=== PATIENT | female | born 2000 | race Caucasian/White ===

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

== ENCOUNTER 2018-05-05 15:55 | Emergency (ER) | payer BC ==
[2018-05-05 16:55] VITALS: BP 107/78
--- NOTE | 2018-05-05 17:11 | UC ---
Respiratory Complaint HPI - HPI Summary HPI Summary: 18 year old female presents with 3 day history of low grade fever (100.5), mild nasal congestion, post-nasal drip, and a non-productive cough. Denies headache, ear pain or pressure, sore throat, chest pain, or shortness of breath. - History of Current Complaint Chief Complaint: UCGeneralIllness Stated Complaint: COUGH Time Seen by Provider: 05/05/18 17:02 Hx Obtained From: Patient Hx Last Menstrual Period: 04/29/18 Onset/Duration: Gradual Onset, Lasting Days - 3 Pain Intensity: 0 Character: Cough: Nonproductive Aggravating Factors: Recumbent Position Alleviating Factors: Nothing Associated Signs And Symptoms: Positive: Fever, URI, Nasal Congestion, Hoarseness. Negative: Dyspnea, Wheezing, Hemoptysis, Sinus Discomfort - Allergies/Home Medications Allergies/Adverse Reactions: Allergies Allergy/AdvReac Type Severity Reaction Status Date / Time cephalexin [From Keflex] Allergy Intermediate Rash Verified 05/05/18 16:56 amoxicillin [From Augmentin] AdvReac GI Upset Verified 05/05/18 16:56 clavulanic acid AdvReac GI Upset Verified 05/05/18 16:56 [From Augmentin] PMH/Surg Hx/FS Hx/Imm Hx Previously Healthy: Yes - Denies significant PMH - Surgical History Surgical History: None Surgery Procedure, Year, and Place: tonsillectomy - Family History Family History: Noncontributory - Social History Occupation: Student Lives: Dormitory/Roommates Alcohol Use: Occasionally Substance Use Type: None Smoking Status (MU): Never Smoked Tobacco - Immunization History Most Recent Influenza Vaccination: none Review of Systems Constitutional: Fever Skin: Negative Eyes: Negative ENT: Nasal Discharge Respiratory: Cough Cardiovascular: Negative Gastrointestinal: Negative Is Patient Immunocompromised?: No All Other Systems Reviewed And Are Negative: Yes Physical Exam Triage Information Reviewed: Yes Appearance: Well-Appearing, No Pain Distress, Well-Nourished Vital Signs: Initial Vital Signs Temp 97.6 F 05/05/18 16:50 Pulse 100 05/05/18 16:50 Resp 18 05/05/18 16:50 BP 107/78 05/05/18 16:50 Pulse Ox 100 05/05/18 16:50 Eyes: Positive: Conjunctiva Clear. Negative: Discharge ENT: Positive: Nasal congestion, Nasal drainage, TMs normal, Uvula midline. Negative: Pharyngeal erythema, Tonsillar swelling, Tonsillar exudate, Sinus tenderness Neck: Positive: Supple, Nontender, No Lymphadenopathy Respiratory: Positive: Lungs clear, Normal breath sounds, No respiratory distress Cardiovascular: Positive: RRR, No Murmur Neurological: Positive: Alert Skin Exam: Normal UC Diagnostic Evaluation - Laboratory O2 Sat by Pulse Oximetry: 100 Respiratory Course/Dx - Course Course Of Treatment: 18 year old female with 3 day history of URI symptoms and non-productive cough. Symptoms likely viral in origin. Recommend symptomatic treatment including Tessalon Perles PRN for cough management. Reviewed warning symptoms. Verbalizes understanding and agrees with POC. - Differential Dx/Diagnosis Differential Diagnosis/HQI/PQRI: Bronchitis, Lower Resp Infection Provider Diagnoses: Acute bronchitis Discharge - Sign-Out/Discharge Documenting (check all that apply): Patient Departure All imaging exams completed and their final reports reviewed: No Studies - Discharge Plan Condition: Stable Disposition: HOME Prescriptions: Benzonatate CAP* [Tessalon 100 MG CAP*] 100 mg PO TID PRN #30 cap PRN Reason: Cough Patient Education Materials: Acute Bronchitis (ED) Referrals: No Primary Care Phys,NOPCP [Primary Care Provider] - Additional Instructions: Your symptoms are consistent with bronchitis. Bronchitis is typically from a viral infection and do not respond to antibiotics. Bronchitis will usually run its course over 10-14 days however the cough may linger for several weeks. Stay well hydrated. Take acetaminophen (Tylenol) or ibuprofen (Advil, Motrin) according to directions for aches, pain, or fever. Use Tessalon Perles 1 cap every 8 hours as needed for cough. Follow up at [facility] if symptoms persist for more than 2 weeks. Seek immediate medical attention in the emergency room if you have persistent fever greater than 100.5 F despite taking acetaminophen or ibuprofen, have chest pain, shortness of breath, or any worsening of symptoms. - Billing Disposition and Condition Condition: STABLE Disposition: Home - Attestation Statements Provider Attestation: Per institutional requirements, I have reviewed the chart, however, I was not consulted specifically or made aware of this patient by the midlevel provider. I did not personally evaluate, interact with , or disposition this patient.
== END 2018-05-05 17:26 | disposition home or self-care (01) ==
LOC: UCCORT 15:55
DX: J20.9 Acute bronchitis, unspecified (principal); Z88.1 Allergy status to other antibiotic agents
CPT/HCPCS: 99212; G0463

== ENCOUNTER 2018-08-30 14:46 | Emergency (ER) | payer BC ==
[2018-08-30 15:35] VITALS: BP 138/83
--- NOTE | 2018-08-30 15:45 | UC ---
UC General HPI - HPI Summary HPI Summary: on , pt fell on the front of her L knee. she notes it was bruised and swollen right after, she figured just a bruise. she comes in for ongoing pain to the front of her knee, around the knee cap that at times locks and gives out. - History of Current Complaint Chief Complaint: UCLowerExtremity Stated Complaint: LEFT KNEE INJURY Time Seen by Provider: 08/30/18 15:34 Hx Obtained From: Patient Hx Last Menstrual Period: 08/07 Pain Intensity: 6 Associated Signs & Symptoms: Negative: Fever - Allergy/Home Medications Allergies/Adverse Reactions: Allergies Allergy/AdvReac Type Severity Reaction Status Date / Time cephalexin [From Keflex] Allergy Intermediate Rash Verified 08/30/18 15:35 amoxicillin [From Augmentin] AdvReac GI Upset Verified 08/30/18 15:35 clavulanic acid AdvReac GI Upset Verified 08/30/18 15:35 [From Augmentin] PMH/Surg Hx/FS Hx/Imm Hx Previously Healthy: Yes - Surgical History Surgical History: Yes Surgery Procedure, Year, and Place: tonsillectomy - Family History Known Family History: Positive: Non-Contributory Negative: Cardiac Disease, Hypertension, Diabetes, Blood Disorder Family History: Noncontributory - Social History Occupation: Student Alcohol Use: Weekly Substance Use Type: None Smoking Status (MU): Never Smoked Tobacco - Immunization History Most Recent Influenza Vaccination: none Vaccination Up to Date: Yes Review of Systems All Other Systems Reviewed And Are Negative: Yes Constitutional: Negative: Fever Skin: Positive: Negative Eyes: Positive: Negative ENT: Positive: Negative Respiratory: Positive: Negative Cardiovascular: Positive: Negative Gastrointestinal: Positive: Negative Genitourinary: Positive: Negative Motor: Positive: Negative Neurovascular: Positive: Negative Neurological: Positive: Negative Psychological: Positive: Negative Physical Exam Triage Information Reviewed: Yes Appearance: Well-Appearing Vital Signs: Initial Vital Signs Temp 97.6 F 08/30/18 15:33 Pulse 75 08/30/18 15:33 Resp 18 08/30/18 15:33 BP 138/83 08/30/18 15:33 Pulse Ox 99 08/30/18 15:33 Vital Signs Reviewed: Yes Eyes: Positive: Conjunctiva Clear ENT: Positive: Normal ENT inspection Neck: Positive: Supple Respiratory: Positive: No respiratory distress Cardiovascular: Positive: RRR Abdomen Description: Positive: Nontender Bowel Sounds: Positive: Present Musculoskeletal: Positive: Other: - LLE: hip non tender. L anterior knee with slght swelling when compared to R and tender over anterior knee plus medial joint line. No joint laxity. Patella not ballotable and no crepitation with patellar grind. ROM is intact. rest of lower leg has full s/v/m function. Neurological: Positive: Alert Psychological: Positive: Age Appropriate Behavior Skin Exam: Normal Skin: Negative: Rashes Diagnostics - Radiology No standard instances Radiology Interpretation Completed By: Radiologist - NEGATIVE L KNEE Course/Dx - Differential Dx - Multi-Symptom Differential Diagnoses: Other - NO CONCERN FOR FX OR INFECTION. POSSIBLE MENISCAL TEAR OR CHONDROMALACIA - Diagnoses Provider Diagnosis: Left anterior knee pain Discharge - Sign-Out/Discharge Documenting (check all that apply): Patient Departure All imaging exams completed and their final reports reviewed: Yes - Discharge Plan Condition: Stable Disposition: HOME Prescriptions: Naproxen [Naprosyn 500 mg tab] 500 mg PO BID 5 Days #10 tablet Referrals: Horacio Clemens MD [Medical Doctor] - As Soon As Possible Additional Instructions: SARAH DURING DAY FOR COMFORT, REMOVE AT BEDTIME - Billing Disposition and Condition Condition: STABLE Disposition: Home
== END 2018-08-30 16:33 | disposition home or self-care (01) ==
LOC: UCCORT 14:46
DX: M25.562 Pain in left knee (principal); Z88.1 Allergy status to other antibiotic agents; Z88.0 Allergy status to penicillin
CPT/HCPCS: 99212; G0463

== ENCOUNTER 2018-09-09 14:34 | Emergency (ER) | payer BC ==
[2018-09-09 14:49] VITALS: BP 116/76
--- NOTE | 2018-09-09 14:59 | UC ---
Nausea/Vomiting/Diarrhea HPI - HPI Summary HPI Summary: 18-year-old female presents with complaints of diarrhea. States she had some abdominal pain, nausea, and vomiting from 09/04/2018 until 09/06/2018 that resolved. Continued to have some mild intermitent abdominal cramping. No pain at present. This morning developed some watery diarrhea. Has had 2-3 episodes of diarrhea. Reports low-grade fever of 100.2 F at onset of symptoms but no other episodes of fever. She has been able to eat some bland food and is keeping fluids down. Denies recent travel out of the country, no recent antibiotic use, consumption of raw or undercooked meat or seafoods, weakness, dizziness, blood in emesis or stool, melena, or urinary symptoms. - History of Current Complaint Chief Complaint: UCGI Stated Complaint: STOMACH ACHE,VOMITING Time Seen by Provider: 09/09/18 14:46 Hx Last Menstrual Period: 09/01/18 Pain Intensity: 0 - Allergies/Home Medications Allergies/Adverse Reactions: Allergies Allergy/AdvReac Type Severity Reaction Status Date / Time cephalexin [From Keflex] Allergy Intermediate Rash Verified 09/09/18 14:46 amoxicillin [From Augmentin] AdvReac GI Upset Verified 09/09/18 14:46 clavulanic acid AdvReac GI Upset Verified 09/09/18 14:46 [From Augmentin] Home Medications: Home Medications NK [No Home Medications Reported] 09/09/18 [History Confirmed 09/09/18] PMH/Surg Hx/FS Hx/Imm Hx Previously Healthy: Yes - Denies significant PMH - Surgical History Surgical History: Yes Surgery Procedure, Year, and Place: tonsillectomy - Family History Known Family History: Positive: Non-Contributory Family History: Noncontributory - Social History Occupation: Student Lives: Dormitory/Roommates Alcohol Use: Occasionally Substance Use Type: None Smoking Status (MU): Never Smoked Tobacco - Immunization History Most Recent Influenza Vaccination: none Vaccination Up to Date: Yes Review of Systems All Other Systems Reviewed And Are Negative: Yes Constitutional: Positive: Fever Skin: Negative: Rash ENT: Positive: Nasal Discharge. Negative: Sore Throat, Ear Ache, Sinus Congestion, Sinus Pain/Tenderness Respiratory: Negative: Shortness Of Breath, Cough Cardiovascular: Negative: Palpitations, Chest Pain Gastrointestinal: Positive: Abdominal Pain, Vomiting, Diarrhea, Nausea Genitourinary: Negative: Dysuria, Hematuria, Frequency, Urgency, Vaginal/Penile Discharge, Abnormal Bleeding Musculoskeletal: Positive: Negative Neurological: Positive: Negative Is Patient Immunocompromised?: No Physical Exam - Summary Physical Exam Summary: GENERAL APPEARANCE: Well developed, obese, alert and cooperative, and appears to be in no acute distress. EYES: Conjunctiva clear. No drainage. Vision is grossly intact. EARS: External auditory canals and tympanic membranes clear, hearing grossly intact. NOSE: Mild nasal congestion. No nasal discharge. THROAT: Pharynx normal No tonsilar inflammation, swelling, exudate, or lesions. Uvula midline. Oral cavity normal. Teeth and gingiva in good general condition. NECK: Neck supple, non-tender without lymphadenopathy. CARDIAC: Normal S1 and S2. No S3, S4 or murmurs. Rhythm is regular. There is no peripheral edema, cyanosis or pallor. Extremities are warm and well perfused. Capillary refill is less than 2 seconds. Peripheral pulses intact. LUNGS: Clear to auscultation without rales, rhonchi, wheezing or diminished breath sounds. ABDOMEN: Positive bowel sounds. Soft, nondistended. Mild generalized tenderness with palpation without guarding or rebound. No masses or hepatosplenomegally. No CVA tenderness. MUSKULOSKELETAL: ROM intact to all extremities. No joint erythema or tenderness. Normal muscular development. Normal gait. SKIN: Skin normal color, texture and turgor with no lesions or eruptions. Triage Information Reviewed: Yes Vital Signs: Initial Vital Signs Temp 98.8 F 09/09/18 14:47 Pulse 75 09/09/18 14:47 Resp 15 09/09/18 14:47 BP 116/76 09/09/18 14:47 Pulse Ox 100 09/09/18 14:47 Vital Signs Reviewed: Yes Naus/Vom/Diarrhea Course/Dx - Course Course Of Treatment: 18-year-old female presents with complaints of diarrhea. States she had some abdominal pain, nausea, and vomiting from 09/04/2018 until that resolved. Continued to have some mild intermitent abdominal cramping. No pain at present. This morning developed some watery diarrhea. Has had 2-3 episodes of diarrhea. Reports low-grade fever of 100.2 F at onset of symptoms but no other episodes of fever. She has been able to eat some bland food and is keeping fluids down. Denies recent travel out of the country, no recent antibiotic use, consumption of raw or undercooked meat or seafoods, weakness, dizziness, blood in emesis or stool, melena, or urinary symptoms. Afebrile. Vital signs stable. Exam reveals a young adult female in no acute distress with some mild generalized abdominal tenderness on palpation otherwise unremarkable exam. Suspect symptoms are from a viral gastroenteritis although I did discuss with the patient that I cannot fully rule out other causes at this time. Recommending symptomatic treatment. She is to return here or follow -up with primary care provider in 3-5 days if symptoms do not improve. Anticipatory guidance and warning symptoms are reviewed with the patient. Verbalizes understanding and agrees with plan of care. - Differential Dx/Diagnosis Differential Diagnoses - Female: Gastroenteritis (Viral), Gastroenteritis ( Bacterial), Vomiting, Diarrhea, Dehydration Provider Diagnosis: Diarrhea Condition At Discharge: Stable Discharge - Sign-Out/Discharge Documenting (check all that apply): Patient Departure All imaging exams completed and their final reports reviewed: No Studies - Discharge Plan Condition: Stable Disposition: HOME Patient Education Materials: Acute Diarrhea (ED) Referrals: No Primary Care Phys,NOPCP [Primary Care Provider] - Additional Instructions: Acute diarrhea typically resolves on its own without treatment over 2-3 days. The most important consideration with diarrhea is avoiding dehydration. Be sure to drink plenty of fluids. Avoid beverages containing caffeine or artificial sweeteners as these can worsen symptoms. Be sure to eat a well balanced diet. Boiled starches and cereals (potatoes, rice , cream of wheat, oatmeal) as well as food such as crackers, toast, bananas, soups and boiled vegetables are usually recommended if you are having watery diarrhea. Be sure to use good hand hygiene to prevent spreading infection. Use an over the counter pain medication such as acetaminophen (Tylenol) or ibuprofen (Advil, Motrin) according to directions as needed for aches and pains. Return here or follow up with your primary care provider in 3-5 days if symptoms persist. Seek immediate medical attention in the emergency room if you have fever greater than 100.5 F, have severe abdominal pain, persistent vomiting, blood in your vomit or stool, you become weak or dizzy, or have any worsening of symptoms. - Billing Disposition and Condition Condition: STABLE Disposition: Home
== END 2018-09-09 15:04 | disposition home or self-care (01) ==
LOC: UCCORT 14:34
DX: R19.7 Diarrhea, unspecified (principal); R10.9 Unspecified abdominal pain; R11.2 Nausea with vomiting, unspecified; Z88.1 Allergy status to other antibiotic agents; Z88.0 Allergy status to penicillin
CPT/HCPCS: 99211; G0463

== ENCOUNTER 2019-04-20 13:20 | Emergency (ER) | payer BC ==
[2019-04-20 13:31] VITALS: BP 123/66
--- NOTE | 2019-04-20 13:37 | UC ---
Nausea/Vomiting/Diarrhea HPI - HPI Summary HPI Summary: 19-year-old female presents with 2-3 day history of nausea and vomiting. States vomiting occurs only after eating. Has been able to keep some water down. LMP 04/10/2019. Denies fever, chills, weakness, dizziness, abdominal pain , back or flank pain, diarrhea, dysuria, frequency, urgency, or hematuria. - History of Current Complaint Chief Complaint: UCGeneralIllness Stated Complaint: VOMITING Time Seen by Provider: 04/20/19 13:30 Hx Obtained From: Patient Hx Last Menstrual Period: 04/10/19 Pain Intensity: 2 - Allergies/Home Medications Allergies/Adverse Reactions: Allergies Allergy/AdvReac Type Severity Reaction Status Date / Time cephalexin [From Keflex] Allergy Intermediate Rash Verified 04/20/19 13:31 amoxicillin [From Augmentin] AdvReac GI Upset Verified 04/20/19 13:31 clavulanic acid AdvReac GI Upset Verified 04/20/19 13:31 [From Augmentin] Home Medications: Home Medications Clindamycin Phos/Benzoyl Perox [Clind pH-Benzoyl Perox 1.2-5%] 1 applic TOPICAL DAILY 04/20/19 [History Confirmed 04/20/19] PMH/Surg Hx/FS Hx/Imm Hx Previously Healthy: Yes - Denies significant PMH - Surgical History Surgical History: Yes Surgery Procedure, Year, and Place: tonsillectomy - Family History Known Family History: Positive: Non-Contributory - Social History Occupation: Student Lives: Dormitory/Roommates Alcohol Use: Occasionally Substance Use Type: None Smoking Status (MU): Never Smoked Tobacco - Immunization History Most Recent Influenza Vaccination: none Vaccination Up to Date: Yes Review of Systems All Other Systems Reviewed And Are Negative: Yes Constitutional: Negative: Fever, Chills ENT: Negative: Sore Throat Respiratory: Positive: Negative Cardiovascular: Positive: Negative Gastrointestinal: Positive: Vomiting, Nausea. Negative: Abdominal Pain, Diarrhea Genitourinary: Negative: Dysuria, Hematuria, Frequency, Urgency, Vaginal/Penile Discharge, Abnormal Bleeding Musculoskeletal: Positive: Negative Neurological: Positive: Negative Is Patient Immunocompromised?: No Physical Exam - Summary Physical Exam Summary: GENERAL APPEARANCE: Well developed, well nourished, alert and cooperative, and appears to be in no acute distress. EYES: Conjunctiva clear. No drainage. PERRL, EOM intact. Vision is grossly intact. EARS: External auditory canals and tympanic membranes clear, hearing grossly intact. NOSE: No nasal discharge. THROAT: Pharynx normal. Tonsils surgically absent. Uvula midline. NECK: Neck supple, non-tender without lymphadenopathy. CARDIAC: Normal S1 and S2. No S3, S4 or murmurs. Rhythm is regular. There is no peripheral edema, cyanosis or pallor. Extremities are warm and well perfused. Capillary refill is less than 2 seconds. Peripheral pulses intact. LUNGS: Clear to auscultation without rales, rhonchi, wheezing or diminished breath sounds. ABDOMEN: Positive bowel sounds. Soft, nondistended, nontender. No guarding or rebound. No masses or hepatosplenomegally. No CVA tenderness. MUSKULOSKELETAL: ROM intact to all extremities. No joint erythema or tenderness. Normal muscular development. Normal gait. SKIN: Skin normal color, texture and turgor with no lesions or eruptions. Triage Information Reviewed: Yes Vital Signs: Initial Vital Signs Temp 97.8 F 04/20/19 13:28 Pulse 97 04/20/19 13:28 Resp 18 04/20/19 13:28 BP 123/66 04/20/19 13:28 Pulse Ox 100 04/20/19 13:28 Vital Signs Reviewed: Yes Naus/Vom/Diarrhea Course/Dx - Course Course Of Treatment: 19-year-old female presents with 2-3 day history of nausea and vomiting. States vomiting occurs only after eating. Has been able to keep some water down. LMP 04/10/2019. Denies fever, chills, weakness, dizziness, abdominal pain , back or flank pain, diarrhea, dysuria, frequency, urgency, or hematuria. Afebrile. Vital signs stable. Patient's exam was overall unremarkable. Urine negative. Will provide her with a prescription for ondansetron 4 mg 1 tablet every 8 hours as needed for nausea and vomiting. She is to return here or follow up with [facility] in 2-3 days if symptoms persist. Anticipatory guidance and warning symptoms requiring immediate evaluation in the emergency room were reviewed with the patient. Verbalizes understanding and agrees with plan of care. - Differential Dx/Diagnosis Differential Diagnoses - Female: , Gastroenteritis (Viral), Gastroenteritis (Bacterial), Vomiting, Renal Calculi, Gastritis Provider Diagnosis: Nausea and vomiting Condition At Discharge: Stable Discharge ED - Sign-Out/Discharge Documenting (check all that apply): Patient Departure All imaging exams completed and their final reports reviewed: No Studies - Discharge Plan Condition: Stable Disposition: HOME Prescriptions: Ondansetron ODT TAB* [Zofran 4 MG Odt TAB*] 4 mg PO Q8H PRN #9 tab.odt PRN Reason: Nausea/Vomiting Patient Education Materials: Acute Nausea and Vomiting (ED) Referrals: No Primary Care Phys,NOPCP [Primary Care Provider] - Additional Instructions: Take ondansetron 4 mg 1 tab every 8 hours as needed for nausea or vomiting. Drink plenty of fluids. Try to drink small amounts frequently to avoid filling your stomach to full which can cause vomiting. If you are still having vomiting, start with a clear liquid diet including soup broths, Jello, popsicles, and kayla-jus with carbonation stirred out of it. You may then advance to a bland diet including saltine crackers, toast, bananas , rice, and applesauce. Then return to a normal diet as tolerated. Follow up here or with the hospital [facility] in 3-5 days if symptoms persist. Seek immediate medical attention in the emergency room if you develop fever greater than 100.5 F, have severe abdominal pain, persistent vomiting, blood in your vomit or stool, or any worsening of symptoms. - Billing Disposition and Condition Condition: STABLE Disposition: Home
== END 2019-04-20 13:58 | disposition home or self-care (01) ==
LOC: UCCORT 13:20
DX: R11.2 Nausea with vomiting, unspecified (principal); Z88.1 Allergy status to other antibiotic agents; Z88.0 Allergy status to penicillin
CPT/HCPCS: 84702; 99212; G0463

== ENCOUNTER 2019-06-21 16:40 | Emergency (ER) | payer BC ==
[2019-06-21 16:49] VITALS: BP 124/66
--- NOTE | 2019-06-21 17:21 | UC ---
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 She has been around another college student that had strep throat. - History of Current Complaint Chief Complaint: UCRespiratory Stated Complaint: SINUSES Time Seen by Provider: 06/21/19 16:57 Hx Obtained From: Patient Hx Last Menstrual Period: 06/16/19 ?: No Onset/Duration: Gradual Onset Severity: Mild Pain Intensity: 6 Cough: Nonproductive Associated Signs & Symptoms: Positive: Negative - Allergies/Home Medications Allergies/Adverse Reactions: Allergies Allergy/AdvReac Type Severity Reaction Status Date / Time cephalexin [From Keflex] Allergy Intermediate Rash Verified 06/21/19 16:49 amoxicillin [From Augmentin] AdvReac GI Upset Verified 06/21/19 16:49 clavulanic acid AdvReac GI Upset Verified 06/21/19 16:49 [From Augmentin] Home Medications: Home Medications guaiFENesin [Mucinex] 600 mg PO 06/21/19 [History] PMH/Surg Hx/FS Hx/Imm Hx Previously Healthy: Yes - Surgical History Surgical History: Yes Surgery Procedure, Year, and Place: tonsillectomy - Family History Known Family History: Positive: Non-Contributory - Social History Occupation: Student Lives: Dormitory/Roommates Alcohol Use: Occasionally Substance Use Type: None Smoking Status (MU): Never Smoked Tobacco - Immunization History Most Recent Influenza Vaccination: none Vaccination Up to Date: Yes Review of Systems All Other Systems Reviewed And Are Negative: Yes ENT: Positive: Sore Throat, Nasal Discharge, Sinus Congestion Is Patient Immunocompromised?: No Physical Exam Triage Information Reviewed: Yes Appearance: Well-Appearing, No Pain Distress, Well-Nourished Vital Signs: Initial Vital Signs Temp 98.7 F 06/21/19 16:45 Pulse 89 06/21/19 16:45 Resp 18 06/21/19 16:45 BP 124/66 06/21/19 16:45 Pulse Ox 100 06/21/19 16:45 Vital Signs Reviewed: Yes Eyes: Positive: Conjunctiva Clear ENT: Positive: Hearing grossly normal, Pharynx normal, Nasal congestion, Nasal drainage - Clear nasal coryza., TMs normal, Sinus tenderness - Mild tenderness over the maxillary sinus., Uvula midline Neck: Positive: Supple, Nontender, No Lymphadenopathy Respiratory: Positive: Lungs clear, Normal breath sounds, No respiratory distress, No accessory muscle use Cardiovascular: Positive: RRR, No Murmur, Pulses Normal, Brisk Capillary Refill Musculoskeletal Exam: Normal Neurological Exam: Normal Psychological Exam: Normal Skin Exam: Normal Throat Pain/Nasal Course/Dx - Course Course Of Treatment: Rapid strep test is negative. I believe this is more of a viral illness and she is to follow up at the [facility] if no improvement in 4 or 5 days. - Differential Dx/Diagnosis Provider Diagnosis: Pharyngitis, URI (upper respiratory infection) Discharge ED - Sign-Out/Discharge Documenting (check all that apply): Patient Departure All imaging exams completed and their final reports reviewed: No Studies - Discharge Plan Condition: Good Disposition: HOME Patient Education Materials: Upper Respiratory Infection (DC) Referrals: No Primary Care Phys,NOPCP [Primary Care Provider] - WILMER FELDMAN [[email or web address], APPLICATION, OTHER] - Additional Instructions: Increase fluids, [id number] cold medicine as directed. Definite follow up at the [facility] in 4 or 5 days if no improvement or if worsening symptoms. - Billing Disposition and Condition Condition: GOOD Disposition: Home
== END 2019-06-21 17:23 | disposition home or self-care (01) ==
LOC: UCCORT 16:40
DX: J06.9 Acute upper respiratory infection, unspecified (principal); J02.9 Acute pharyngitis, unspecified; Z88.1 Allergy status to other antibiotic agents; Z88.0 Allergy status to penicillin
CPT/HCPCS: 87651; 99211; G0463